=== PATIENT | male | born 1990 | race Caucasian/White ===

== ENCOUNTER 2019-10-06 02:35 | Emergency (ER) | payer SELFPAY ==
[~2019-10-06] VITALS: Ht 177.8 cm; Wt 72.7 kg
[~2019-10-06 02:35] MED LIST: CEPH-357 PO
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
[2019-10-06 03:49] VITALS: BP 97/56
== END 2019-10-06 04:48 | disposition home or self-care (01) ==
LOC: ER 02:35
DX: S20.211A Contusion of right front wall of thorax, initial encounter (principal); S09.90XA Unspecified injury of head, initial encounter; M54.2 Cervicalgia; F17.200 Nicotine dependence, unspecified, uncomplicated; F12.90 Cannabis use, unspecified, uncomplicated; Z79.899 Other long term (current) drug therapy; Y04.8XXA Assault by other bodily force, initial encounter; Y93.89 Activity, other specified; Y92.89 Other specified places as the place of occurrence of the external cause; Y99.8 Other external cause status
CPT/HCPCS: 70450; 71250; 72125; 72128; 99284

== ENCOUNTER 2023-05-30 23:31 | Emergency (ER) | payer MEDICAID, OTHER ==
[~2023-05-30] VITALS: Ht 180.3 cm; Wt 108.2 kg
[~2023-05-30 23:31] MED LIST changes: +AMOX-580 PO; -CEPH-357 PO; +DOXY-224 PO; +HYDR-4353 PO; +LACT1CAP26 PO
[2023-05-30 23:34] VITALS: TEMP 98
[2023-05-31 01:07] VITALS: BP 118/80; PULSE 78; RESP 18; O2SAT 100
[2023-05-31] MEDS ORDERED: DOXYCYCLINE 100MG CAPSULE PO STA (01:52)
[2023-05-31] MEDS ORDERED: cephalexin 250mg capsule PO ONE (01:55)
[2023-05-31] MEDS ORDERED: ondansetron 4mg rapidly disintigrating tab PO ONE (01:55)
[2023-05-31] MEDS ORDERED: DOXY100C77 PO (01:59)
[2023-05-31] MEDS ORDERED: CEPH250T PO (01:59)
== END 2023-05-31 02:31 | disposition home or self-care (01) ==
LOC: ER 23:32
DX: L03.116 Cellulitis of left lower limb (principal); M79.671 Pain in right foot
CPT/HCPCS: 99284